=== PATIENT | female | born 1975 | race Caucasian/White ===

== ENCOUNTER 2019-12-31 08:34 | Emergency (ER) | payer OTHER, SELFPAY | END 2019-12-31 08:40 | disposition left against medical advice (07) | LOC: EXPGLEN 08:38 | PROVIDERS: Emergency Provider Nurse Practitioner Family; PCP Family Medicine | DX: Z53.21 Procedure and treatment not carried out due to patient leaving prior to being seen by health care provider (principal) | CPT/HCPCS: 99199 ==